=== PATIENT | female | born 1990 | race African-American/Black ===

== ENCOUNTER 2024-11-21 20:38 | Emergency (ER) | payer OTHER, SELFPAY ==
[2024-11-21 20:53] VITALS: BP 139/81; PULSE 63; RESP 18; TEMP 36.5; O2SAT 100; BMI 27.1
== END 2024-11-22 00:33 | disposition left against medical advice (07) ==
PROVIDERS: Emergency Provider Emergency Medicine
DX: Z53.21 Procedure and treatment not carried out due to patient leaving prior to being seen by health care provider (principal)
CPT/HCPCS: 99281